=== PATIENT | male | born 1995 | race Caucasian/White ===

== ENCOUNTER 2017-09-23 17:44 | Emergency (ER) | END 2017-09-23 19:48 | disposition home or self-care (01) ==

== ENCOUNTER 2017-12-01 18:29 | Emergency (ER) | END 2017-12-01 23:25 | disposition home or self-care (01) ==

== ENCOUNTER 2018-05-02 19:06 | Emergency (ER) | payer OTHER ==
[~2018-05-02] VITALS: Ht 175.3 cm; Wt 71.0 kg
[~2018-05-02 19:06] MED LIST: HYDR-842 PO; NAPR-985 PO; [UNRECOGNIZED DRUG - REMARK]
[2018-05-02 19:24] VITALS: Ht 175.3 cm; Wt 71.0 kg
[2018-05-03] MEDS ORDERED: FLUCONAZOLE 150 MG TAB PO ONE (02:00)
[2018-05-03] MEDS ORDERED: MUPI22OI2 TOP (02:03)
[2018-05-03 02:31] VITALS: BP 118/72; PULSE 66; RESP 16
--- NOTE | 2018-05-17 03:10 | ERD ---
ER Documentation Chief Complaint Chief Complaint states wants std check, c/o burning/red dots penis x 2 days HPI History of Present Illness: Patient coming in today with complaint check. P atient reports burning to with red dots has been present for 2 days. Patient denies any new sexual partners. Patient reports that partner has discharge. Associated symptoms include painful urination. Denies At home pharmacological/nonpharmacological treatment for symptoms: Denies social concerns; Denies recent foreign travel ROS All systems reviewed and are negative except as per history of present illness. 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] No Conflict Check 03/12/12 Allergies Allergies: Coded Allergies: No Known Allergy (Unverified , 04/26/14) PMhx/Soc History of Surgery: Yes (NOSE SX) Anesthesia Reaction: No Hx Neurological Disorder: No Hx Respiratory Disorders: No Hx Cardiac Disorders: No Hx Psychiatric Problems: Yes (Anxiety) Hx Miscellaneous Medical Probl: Yes (LOW CHOLESTEROL) Hx Alcohol Use: No Hx Substance Use: Yes (FORMER MARIJUANA) Hx Tobacco Use: No Smoking Status: Never smoker FmHx Family History: No diabetes Physical Exam Physical Exam Const: No acute distress Head: Atraumatic Eyes: Normal Conjunctiva ENT: Normal External Ears, Nose and Mouth. Neck: Full range of motion. No meningismus. Resp: Clear to auscultation bilaterally Cardio: Regular rate and rhythm, no murmurs Abd: Soft, non tender, non distended. Normal bowel sounds Skin: No petechiae or rashes Back: No midline or flank tenderness Ext: No cyanosis, or edema Neur: Awake and alert Psych: Normal Mood and Affect Genitourinary: Erythema noted to be note pain over the head, tender to palpationd to, no apparent ecchymosis. Ecchymosis/ Results 24 hrs Laboratory Tests Test 05/03/18 02:27 Chlamydia trachomatis RNA (TMA) NOT DETECTED Chlamydia/GC Comment SEE NOTE Herpes Simplex Virus I IgG Antibody 34.40 index Herpes Simplex Virus II IgG Ab <0.90 index Neisseria gonorrhoeae RNA (TMA) NOT DETECTED Current Medications Medications Dose Sig/Devon Start Time Status Last (Trade) Ordered Route PRN Stop Time Admin Dose Reason Admin Fluconazole 150 mg ONCE ONCE 05/03/18 DC 05/03/18 (Diflucan) PO 02:00 02:09 05/03/18 02:01 Procedures/MDM ED course includes a thorough examination and history. Medications: Fluconazole Imaging: --- Labs: Gonorrhea chlamydia, HSV Low suspicion for life-threatening medical emergency. Otherwise healthy patient presenting with constellation of symptoms likely representing uncomplicated balanitis as characterized by history, physical exam findings, lab findings. HSV lab studies pending. Gonorrhea chlamydia lab studies pending. No respiratory distress, otherwise relatively well appearing and nontoxic. P atient educated on diagnoses, prescriptions, follow-up care, return precautions. Strict return precautions given for worsening condition; questions answered discharge. Disposition for discharge with followup in 2 days with PCP/clinic. Departure Diagnosis: Primary Impression: Balanitis Condition: Stable Patient Instructions: Balanitis Referrals: [facility] YOU HAVE RECEIVED A MEDICAL SCREENING EXAM AND THE RESULTS INDICATE THAT YOU DO NOT HAVE A CONDITION THAT REQUIRES URGENT TREATMENT IN THE EMERGENCY DEPARTMENT. FURTHER EVALUATION AND TREATMENT OF YOUR CONDITION CAN WAIT UNTIL YOU ARE SEEN IN YOUR DOCTORS OFFICE WITHIN THE NEXT 1-2 DAYS. IT IS YOUR RESPONSIBILITY TO MAKE AN APPOINTMENT FOR FOLOW-UP CARE. IF YOU HAVE A PRIMARY DOCTOR --you should call your primary doctor and schedule an appointment IF YOU DO NOT HAVE A PRIMARY DOCTOR YOU CAN CALL OUR PHYSICIAN REFERRAL HOTLINE AT IF YOU CAN NOT AFFORD TO SEE A PHYSICIAN YOU CAN CHOSE FROM THE FOLLOWING [facility] [address] [place] [facility] [address] [facility]. [facility] [address] [facility] [address] [facility]. [facility] [address] [facility]. [facility] [address] [facility]. [facility] YOU HAVE RECEIVED A MEDICAL SCREENING EXAM AND THE RESULTS INDICATE THAT YOU DO NOT HAVE A CONDITION THAT REQUIRES URGENT TREATMENT IN THE EMERGENCY DEPARTMENT. FURTHER EVALUATION AND TREATMENT OF YOUR CONDITION CAN WAIT UNTIL YOU ARE SEEN IN YOUR DOCTORS OFFICE WITHIN THE NEXT 1-2 DAYS. IT IS YOUR RESPONSIBILITY TO MAKE AN APPOINTMENT FOR FOLOW-UP CARE. IF YOU HAVE A PRIMARY DOCTOR --you should call your primary doctor and schedule and appointment IF YOU DO NOT HAVE A PRIMARY DOCTOR YOU CAN CALL OUR PHYSICIAN REFERRAL HOTLINE AT . IF YOU CAN NOT AFFORD TO SEE A PHYSICIAN YOU CAN CHOSE FROM THE FOLLOWING [facility]: [facility] [address] [place] [address] [facility] [address] [place], [place] [id number] [place] [address] [address] [place] [address] Additional Instructions: Call your primary care doctor TOMORROW for an appointment during the next 2-3 days for reevaluation of your symptoms. See the doctor sooner or return here if your condition worsens before your appointment time. If the medication does not help any by the next 3 days, he can return to ER. If your lab testing has a positive finding, we will call you. MIRZA VILLAVICENCIO NP May 17, 2018 03:10
== END 2018-05-03 02:32 | disposition home or self-care (01) ==
LOC: FTE 19:06
DX: N48.1 Balanitis (principal)
CPT/HCPCS: 86692; 87591; Z7610; 99283